=== PATIENT | female | born 1970 | race African-American/Black ===

== ENCOUNTER 2022-04-20 16:40 | Emergency (ER) | payer SELFPAY ==
[~2022-04-20] VITALS: Ht 157.5 cm; Wt 98.0 kg
[2022-04-20 16:50] VITALS: BP 178/123
== END 2022-04-20 17:01 | disposition left against medical advice (07) ==
LOC: ER 16:40
DX: Z60.2 Problems related to living alone (principal)
CPT/HCPCS: 99281